=== PATIENT | female | born 1935 | race Caucasian/White ===

== ENCOUNTER 2020-07-04 08:00 | Day surgery (SDC) | payer OTHER, BC ==
[2020-07-03 15:19] VITALS: BMI 19.8
[2020-07-04 09:13] VITALS: TEMP 97.6
[2020-07-04 10:12] VITALS: BP 133/55; PULSE 74
--- NOTE | 2020-07-05 18:49 | PATH ---
Surgical Pathology Report Patient Name: CHRISTOPHER JAIME [facility]. Rec. #: [id number] /Age/Gender: 1935 (Age: 85) / F Account: [id number] Location: U-ENDOSCOPY Taken: 07/04/2020 Received: 07/04/2020 Reported: 07/05/2020 Physicians: Jeremy Mcnulty M.D. Specimen(s) Received RIGHT COLON POLYP Clinical History Colon cancer screening Postoperative diagnosis: Colon polyp Final Diagnosis COLON, RIGHT, POLYP, BIOPSY: TUBULAR ADENOMA. Electronically Signed Mia Bailey M.D. Gross Description Received in formalin, labeled "biopsy right colon polyp" is a hodges, irregular portion of soft tissue measuring 0.4 cm. in greatest dimension. The specimen is submitted in toto in one cassette. /07/04/2020 [facility]/07/04/2020
== END 2020-07-04 10:20 | disposition home or self-care (01) ==
LOC: JASU-ENDO 08:00
PROVIDERS: ATTEND Internal Medicine Gastroenterology
PROC: 0DBK8ZX Excision of Ascending Colon, Via Natural or Artificial Opening Endoscopic, Diagnostic (ICD-10-PCS; principal; 2020-07-04 09:00)
DX: Z12.11 Encounter for screening for malignant neoplasm of colon (principal); D12.2 Benign neoplasm of ascending colon; K64.8 Other hemorrhoids; I10 Essential (primary) hypertension; E78.5 Hyperlipidemia, unspecified; G25.0 Essential tremor
CPT/HCPCS: 88305-TC